=== PATIENT | female | born 1960 | race Caucasian/White ===

== ENCOUNTER 2016-02-20 18:43 | Emergency (ER) | payer SELFPAY ==
[2016-02-20 19:30] LABS: SPECIFIC GRAVITY 1.015 (1.001-1.030); URINE BILIRUBIN NEGATIVE (NEGATIVE); URINE BLOOD NEGATIVE (NEGATIVE); URINE GLUCOSE (UA) NEGATIVE (NEGATIVE); URINE LEUKOCYTE ESTERASE NEGATIVE (NEGATIVE); URINE NITRITE NEGATIVE (NEGATIVE); URINE PROTEIN NEGATIVE (NEGATIVE); URINE UROBILINOGEN NORMAL (0-1 mg/dl)
[2016-02-20 19:31] LABS: URINE APPEARANCE CLEAR; URINE COLOR LIGHT YELLOW
--- NOTE | 2016-02-20 20:23 | RAD ---
Name: MARY CRAIG Exam: Two-view chest Comparison: None Clinical history: Syncopal episode Findings: 2 views the chest are submitted. Heart, mediastinum and hilar structures are within normal limits. There is no failure, infiltrate, pleural effusion or pneumothorax. It appears as if a portion of the right first rib is absent. There is a very large hiatal hernia. Gallbladder surgically absent. Degenerative disease of the spine is noted. Impression: 1. No acute cardiopulmonary process 2. Large hiatal hernia
[2016-02-20 21:11] LABS: ABSOLUTE NEUTROPHIL COUNT 3.3 K/mm3 (1.8-7.7); BASO % 0.5 % (0.2-1.0); EOS # 0.1 (0.0-0.5); HEMATOCRIT 42.6 % (37.0-47.0); HEMOGLOBIN 14.5 gm/l (12.0-16.0); IMM NEUT% 0.2 % (0-1); LYMPH # 2.3 (1.0-4.8); LYMPH % 38.3 % (15-45); MEAN CELL VOLUME 100.7 fl (81.0-99.0); MEAN CORPUSCULAR HEMOGLOBIN 34.3 pg (27.0-31.0); MEAN PLATELET VOLUME 9.1 fl (7.4-10.4); MONO # 0.3 (0.0-0.8); MONO % 4.6 % (4-12); NEUT % 55.4 % (43-75); PLATELET COUNT 330 K/mm3 (130-400); RED CELL DISTRIBUTION WIDTH 12.2 % (11.5-14.5)
[2016-02-20 21:26] LABS: ALB/GLOB RATIO 1.6 (>1.0); ALBUMIN 4.3 gm/dL (3.5-5.7); CALCIUM 9.4 mg/dL (8.6-10.3)
[2016-02-20 21:31] LABS: TROPONIN I < 0.01 ng/ml (0.0-0.06)
[2016-02-20 21:34] LABS: CKMB ISOENZYME 1.2 ng/ml (0.6-6.3)
[2016-02-20] MEDS ORDERED: HYDROCODONE/ACETAMINOPHEN 5/325MG TABLET ONE (21:58)
== END 2016-02-20 22:10 | disposition home or self-care (01) ==
LOC: ED 18:43
DX: R55 Syncope and collapse (principal); R11.0 Nausea; F10.129 Alcohol abuse with intoxication, unspecified; Y90.6 Blood alcohol level of 120-199 mg/100 ml; F17.210 Nicotine dependence, cigarettes, uncomplicated
CPT/HCPCS: 83690; 85025; 82553; 80053; 80307; 81003; 84484; 71020; 99283 ×2; A9270